=== PATIENT | female | born 1935 | race Caucasian/White ===

== ENCOUNTER 2017-02-25 11:50 | Outpatient (CLI) | payer OTHER, MEDICARE ==
--- NOTE | 2017-02-25 12:20 | XRAY Report ---
FOUR VIEW LEFT WRIST: 02/25/2017 CLINICAL INDICATION: Fracture. FINDINGS: AP, lateral, oblique, and scaphoid views of the left wrist demonstrate a mildly displaced radial styloid fracture as well as an ulnar styloid fracture. Degenerative changes are present, worst at the 1st carpometacarpal joint. No radiopaque foreign body is seen in the soft tissues. IMPRESSION: MILDLY DISPLACED INTRAARTICULAR RADIAL STYLOID FRACTURE. ULNAR STYLOID FRACTURE. JOB #: [id number] EXT JOB #:[id number]
== END 2017-02-25 11:51 | disposition home or self-care (01) ==
LOC: DI 11:50
PROVIDERS: ATTEND Family Medicine
DX: S52.512A Displaced fracture of left radial styloid process, initial encounter for closed fracture (principal); S52.612A Displaced fracture of left ulna styloid process, initial encounter for closed fracture

== ENCOUNTER 2017-08-26 12:48 | Outpatient (CLI) | payer MEDICARE, OTHER ==
--- NOTE | 2017-08-30 15:17 | XRAY Report ---
DATE OF SERVICE: 08/26/2017 TWO VIEW CHEST: 08/26/2017 CLINICAL INDICATION: Cough, arrhythmia, left sided pain. FINDINGS: Frontal and lateral views of the chest demonstrate a normal cardiac silhouette. The lungs are hyperinflated, but clear. No effusion or pneumothorax is present. IMPRESSION: Hyperinflation, suggestive of COPD. No evidence of acute cardiopulmonary disease. TD: 08/26/2017 23:06
== END 2017-08-26 12:49 | disposition home or self-care (01) ==
LOC: DI 12:48
PROVIDERS: ATTEND Physician Assistant
DX: R05 Cough (principal); R00.2 Palpitations
CPT/HCPCS: 71020